=== PATIENT | female | born 1960 | race Two or more races ===

== ENCOUNTER 2016-09-13 15:30 | Emergency (ER) | payer MEDICAID, OTHER ==
[~2016-09-13] VITALS: Ht 160 cm; Wt 80.3 kg
[2016-09-13 17:44] VITALS: BP 162/87
== END 2016-09-13 18:13 | disposition home or self-care (01) ==
LOC: ER 15:43
DX: Z45.2 Encounter for adjustment and management of vascular access device (principal); Z85.9 Personal history of malignant neoplasm, unspecified

== ENCOUNTER 2020-06-10 18:20 | Inpatient (IN) | payer MEDICAID ==
[~2020-06-10] VITALS: Ht 160 cm; Wt 77.4 kg
[2020-06-10] MEDS ORDERED: SODIUM CHLORIDE 0.9% 1,000 ML IV ONE (19:30)
[2020-06-10] MEDS ORDERED: AZITHROMYCIN 500MG/ 250ML 250 ML IV ONE (19:30)
[2020-06-10] MEDS ORDERED: cefTRIAXone 1GM/50ML D5W 50 ML IV ONE (19:30)
[2020-06-10 19:42] LABS: Basophils # (auto) 0 10 ^3/uL (0-0.2); Basophils % (auto) 0.2 % (0.0-2.0); Eosinophils # (auto) 0.1 10 ^3/uL (0-0.8); Hematocrit 38.3 % (36.0-46.0); Lymphocytes # (auto) 1.2 10 ^3/uL (0.4-5.4); Lymphocytes % (auto) 15.1 % (10.0-50.0); Mean Corpuscular Volume 93.9 fL (80.0-100.0); Monocytes # (auto) 0.5 10 ^3/uL (0-1.3); Monocytes % (auto) 6.1 % (0.0-12.0); Neutrophils # (auto) 6.2 10 ^3/uL (1.6-8.6); Neutrophils % (auto) 77.6 % (37.0-80.0); Platelet Count (auto) 206 10^3/uL (140-450); Red Blood Cells 4.08 10^6/uL (4.0-5.20)
[2020-06-10 19:55] LABS: Albumin 2.9 g/dL (3.4-5.0); Calcium 8.1 mg/dL (8.5-10.1); Potassium 3.6 mmol/L (3.5-5.1)
[2020-06-10 19:59] LABS: BUN/Creatinine Ratio 11.4; Bilirubin, Total 0.5 mg/dL (0.2-1.0); Total Protein 7.8 g/dL (6.4-8.2)
[2020-06-10] MEDS ORDERED: DexAMETHasone INJECTION 10 MG in D5W 5% 50 ML IV ONE (21:15)
[2020-06-10] MEDS ORDERED: DexAMETHasone SOD PHOS 4 MG/1ML SDV INJ IV ONE (21:30)
[2020-06-11] MEDS ORDERED: HYDROcodone-ACET 5/325MG TAB PO PRN (05:45)
[2020-06-11] MEDS ORDERED: ONDANSETRON HCL 4 MG/2 ML VIAL IV PRN (05:45)
[2020-06-11] MEDS ORDERED: NITROGLYCERIN 0.4 MG SL TAB SL PRN (05:45)
[2020-06-11] MEDS ORDERED: MORPHINE SULF INJ 2 MG/ML SYRINGE 1ML IV PRN ×2 (05:45)
[2020-06-11] MEDS ORDERED: DOCUSATE SOD 100 MG CAP PO PRN (05:45)
[2020-06-11] MEDS ORDERED: ACETAMINOPHEN 325 MG TAB PO PRN (05:45)
[2020-06-11] MEDS ORDERED: DOXYCYCLINE 100MG/250ML 250 ML IV SCH (06:00)
[2020-06-11] MEDS: SODIUM CHLOR 0.9% PF (SALINE LOCK) 10ML VIAL/SYR IV SCH ×3 (06:00→22:27)
[2020-06-11] MEDS ORDERED: ALBUTEROL SULF HFA 90MCG INH 200DOSE IN SCH (06:00)
[2020-06-11 07:35] LABS: Basophils # (auto) 0 10 ^3/uL (0-0.2); Basophils % (auto) 0.1 % (0.0-2.0); Eosinophils # (auto) 0 10 ^3/uL (0-0.8); Hematocrit 38.4 % (36.0-46.0); Hemoglobin 12.9 g/dL (12.2-16.2); Lymphocytes # (auto) 0.8 10 ^3/uL (0.4-5.4); Lymphocytes % (auto) 15.7 % (10.0-50.0); Mean Corpuscular Hemoglobin 31.3 pg (28.0-32.0); Mean Corpuscular Hgb Conc. 33.6 g/dL (32.0-36.0); Mean Corpuscular Volume 93.1 fL (80.0-100.0); Monocytes # (auto) 0.2 10 ^3/uL (0-1.3); Monocytes % (auto) 4.4 % (0.0-12.0); Neutrophils # (auto) 3.9 10 ^3/uL (1.6-8.6); Neutrophils % (auto) 79.8 % (37.0-80.0); Nucleated Red Blood Cells % 0.1 %; Platelet Count (auto) 237 10^3/uL (140-450); Red Blood Cells 4.12 10^6/uL (4.0-5.20); Red Cell Distribution Width 12.9 % (11.8-14.3); White Blood Cell 4.9 10^3/uL (4.4-10.8)
[2020-06-11 07:47] LABS: Albumin 2.8 g/dL (3.4-5.0); BUN/Creatinine Ratio 10.9; Calcium 8.7 mg/dL (8.5-10.1)
[2020-06-11 07:51] LABS: Bilirubin, Total 0.4 mg/dL (0.2-1.0); Total Protein 7.5 g/dL (6.4-8.2)
[2020-06-11] MEDS: FAMOTIDINE (10MG/ML) 2ML VL IV SCH ×2 (09:46→22:27)
[2020-06-11] MEDS ORDERED: DexAMETHasone SOD PHOS 10MG/1ML VIAL INJ IV SCH (10:00)
[2020-06-11] MEDS: ZINC SULFATE 220mg CAP or TAB PO SCH (10:00)
[2020-06-11] MEDS ORDERED: ENOXAPARIN SOD 40 MG/0.4 ML SYRINGE SC SCH (10:00)
[2020-06-11] MEDS: MULTIPLE VITAMIN TAB PO SCH (10:00)
[2020-06-11] MEDS: ASCORBIC ACID 500 MG TAB PO SCH ×2 (10:00→22:27)
[2020-06-11] MEDS ORDERED: levoFLOXacin 500MG 100 ML IV ONE (11:00)
[2020-06-11] MEDS ORDERED: REMDESIVIR PER PHARMACY 0 ML IV SCH (11:00)
[2020-06-11] MEDS ORDERED: diphenhdrAMINE HCL 50 MG/1 ML VL IV PRN (11:00)
[2020-06-11] MEDS: cefTRIAXone 1GM/50ML D5W 50 ML IV SCH (20:00)
[2020-06-11] MEDS: ENOXAPARIN SOD 40 MG/0.4 ML SYRINGE SC SCH (22:27)
[2020-06-12 05:13] LABS: Basophils # (auto) 0 10 ^3/uL (0-0.2); Basophils % (auto) 0.1 % (0.0-2.0); Eosinophils # (auto) 0 10 ^3/uL (0-0.8); Eosinophils % (auto) 0.1 % (0.0-7.0); Hematocrit 37.1 % (36.0-46.0); Hemoglobin 12.8 g/dL (12.2-16.2); Lymphocytes % (auto) 12.9 % (10.0-50.0); Mean Corpuscular Hemoglobin 32.4 pg (28.0-32.0); Mean Corpuscular Hgb Conc. 34.6 g/dL (32.0-36.0); Mean Corpuscular Volume 93.6 fL (80.0-100.0); Monocytes # (auto) 0.6 10 ^3/uL (0-1.3); Monocytes % (auto) 7.5 % (0.0-12.0); Neutrophils % (auto) 79.4 % (37.0-80.0); Nucleated Red Blood Cells % 0.1 %; Platelet Count (auto) 275 10^3/uL (140-450); Red Blood Cells 3.96 10^6/uL (4.0-5.20); Red Cell Distribution Width 13.4 % (11.8-14.3); White Blood Cell 7.5 10^3/uL (4.4-10.8)
[2020-06-12 05:25] LABS: Albumin 2.7 g/dL (3.4-5.0); BUN/Creatinine Ratio 18.6; Potassium 4.1 mmol/L (3.5-5.1)
[2020-06-12 05:33] LABS: Bilirubin, Total 0.5 mg/dL (0.2-1.0); Total Protein 7.1 g/dL (6.4-8.2)
[2020-06-12] MEDS: SODIUM CHLOR 0.9% PF (SALINE LOCK) 10ML VIAL/SYR IV SCH ×3 (06:21→22:32)
[2020-06-12] MEDS ORDERED: LEVO25TA49 PO (09:58)
[2020-06-12] MEDS: FAMOTIDINE (10MG/ML) 2ML VL IV SCH ×2 (10:00→22:33)
[2020-06-12] MEDS: MULTIPLE VITAMIN TAB PO SCH (10:08)
[2020-06-12] MEDS: ZINC SULFATE 220mg CAP or TAB PO SCH (10:08)
[2020-06-12] MEDS: ASCORBIC ACID 500 MG TAB PO SCH ×2 (10:08→22:33)
[2020-06-12] MEDS: levoFLOXacin 500MG 100 ML IV SCH (10:08)
[2020-06-12] MEDS: ENOXAPARIN SOD 40 MG/0.4 ML SYRINGE SC SCH ×2 (10:08→22:00)
[2020-06-12] MEDS: LEVOTHYROXINE SODIUM 50 MCG TAB PO SCH (10:46)
[2020-06-12] MEDS: Glucerna Carbsteady SHAKE Vanilla 8oz PO SCH (18:39)
[2020-06-12] MEDS: cefTRIAXone 1GM/50ML D5W 50 ML IV SCH (21:34)
[2020-06-12 23:06] VITALS: BP 132/79
[2020-06-12 23:30] VITALS: BP 132/79
[2020-06-13] MEDS ORDERED: ASCO500T11 PO (01:39)
[2020-06-13] MEDS ORDERED: CHOL20009 PO (01:39)
[2020-06-13] MEDS ORDERED: ZINC220C8 PO (01:39)
[2020-06-13] MEDS ORDERED: OMEG1CAP59 PO (01:39)
[2020-06-13 03:41] VITALS: BP 115/74
[2020-06-13] MEDS: SODIUM CHLOR 0.9% PF (SALINE LOCK) 10ML VIAL/SYR IV SCH ×3 (05:32→21:53)
[2020-06-13] MEDS: LEVOTHYROXINE SODIUM 50 MCG TAB PO SCH (06:33)
[2020-06-13 07:56] VITALS: BP 133/86
[2020-06-13] MEDS: MULTIPLE VITAMIN TAB PO SCH (09:19)
[2020-06-13] MEDS: levoFLOXacin 500MG 100 ML IV SCH (09:19)
[2020-06-13] MEDS: ENOXAPARIN SOD 40 MG/0.4 ML SYRINGE SC SCH ×2 (09:20→21:54)
[2020-06-13] MEDS: FAMOTIDINE (10MG/ML) 2ML VL IV SCH ×2 (09:20→21:53)
[2020-06-13] MEDS: ASCORBIC ACID 500 MG TAB PO SCH ×2 (09:20→21:54)
[2020-06-13] MEDS: Glucerna Carbsteady SHAKE Vanilla 8oz PO SCH ×3 (09:20→17:31)
[2020-06-13] MEDS: ZINC SULFATE 220mg CAP or TAB PO SCH (09:22)
[2020-06-13] MEDS ORDERED: CHOLECALCIFEROL (VITD3) 2,000 UNIT CAP/TAB PO ONE (11:02)
[2020-06-13] MEDS ORDERED: DexAMETHasone SOD PHOS 10MG/1ML VIAL INJ IV ONE (11:02)
[2020-06-13] MEDS ORDERED: REMDESIVIR PER PHARMACY 0 ML IV SCH (11:15)
[2020-06-13 12:15] LABS: Hematocrit 38.1 % (36.0-46.0); Hemoglobin 12.8 g/dL (12.2-16.2); Mean Corpuscular Hemoglobin 31.8 pg (28.0-32.0); Mean Corpuscular Hgb Conc. 33.6 g/dL (32.0-36.0); Mean Corpuscular Volume 94.5 fL (80.0-100.0); Platelet Count (auto) 339 10^3/uL (140-450); Red Blood Cells 4.03 10^6/uL (4.0-5.20); Red Cell Distribution Width 13.4 % (11.8-14.3); White Blood Cell 8.7 10^3/uL (4.4-10.8)
[2020-06-13 12:17] LABS: Basophils % (manual) 0 (0.0-2.0); Blast Cells 0; Promyelocytes % 0; Reactive Lymphocytes 0
[2020-06-13 12:33] LABS: Potassium 3.8 mmol/L (3.5-5.1)
[2020-06-13 12:40] LABS: Band Neutrophils % (manual) 3; Eosinophils % (manual) 2 (0-7); Lymphocytes % (manual) 29 (10.0-50.0); Metamyelocytes % 2; Monocytes % (manual) 8 (0-12); Myelocytes % 1
[2020-06-13 12:54] LABS: Albumin 2.6 g/dL (3.4-5.0); BUN/Creatinine Ratio 24.6; Bilirubin, Total 0.5 mg/dL (0.2-1.0); Calcium 8.1 mg/dL (8.5-10.1); Total Protein 7.1 g/dL (6.4-8.2)
[2020-06-13 16:00] VITALS: BP 125/74
[2020-06-13] MEDS ORDERED: REMDESIVIR 200 MG in NS 210ml LOADING DOSE ADULT IV ONE (17:00)
[2020-06-13 17:30] VITALS: BP 130/71
[2020-06-13 17:45] VITALS: BP 105/60
[2020-06-13 18:30] VITALS: BP 103/60
[2020-06-13] MEDS: BUDESONIDE (INHALATION) 180 MCG IH IN SCH (20:37)
[2020-06-14] VITALS: BP 118/63
[2020-06-14] MEDS: SODIUM CHLOR 0.9% PF (SALINE LOCK) 10ML VIAL/SYR IV SCH ×3 (06:00→22:00)
[2020-06-14] MEDS: LEVOTHYROXINE SODIUM 50 MCG TAB PO SCH (06:44)
[2020-06-14] MEDS ORDERED: IVERMECTIN 3 MG TAB PO ONE (07:00)
[2020-06-14] MEDS: BUDESONIDE (INHALATION) 180 MCG IH IN SCH ×2 (07:00→19:32)
[2020-06-14 07:25] LABS: Albumin 2.5 g/dL (3.4-5.0); BUN/Creatinine Ratio 21.7; Calcium 8.4 mg/dL (8.5-10.1); Potassium 4.3 mmol/L (3.5-5.1)
[2020-06-14 07:34] LABS: Bilirubin, Total 0.4 mg/dL (0.2-1.0); CRP High Sensitivity 2.41 mg/dL (< 0.3); Total Protein 6.9 g/dL (6.4-8.2)
[2020-06-14 08:00] VITALS: BP 121/81
[2020-06-14] MEDS: Glucerna Carbsteady SHAKE Vanilla 8oz PO SCH ×3 (08:28→17:54)
[2020-06-14] MEDS: levoFLOXacin 500MG 100 ML IV SCH (09:09)
[2020-06-14] MEDS: FAMOTIDINE (10MG/ML) 2ML VL IV SCH ×2 (09:09→22:00)
[2020-06-14] MEDS: DexAMETHasone SOD PHOS 10MG/1ML VIAL INJ IV SCH (09:09)
[2020-06-14] MEDS: MULTIPLE VITAMIN TAB PO SCH (09:10)
[2020-06-14] MEDS: ZINC SULFATE 220mg CAP or TAB PO SCH (09:10)
[2020-06-14] MEDS: CHOLECALCIFEROL (VITD3) 2,000 UNIT CAP/TAB PO SCH (09:10)
[2020-06-14] MEDS: ENOXAPARIN SOD 40 MG/0.4 ML SYRINGE SC SCH ×2 (09:10→22:00)
[2020-06-14] MEDS: ASCORBIC ACID 500 MG TAB PO SCH ×2 (09:10→22:00)
[2020-06-14] MEDS ORDERED: ERGOCALCIFEROL 50,000 UNIT(1.25MG) CAP PO SCH (13:00)
[2020-06-14 14:30] VITALS: BP 117/71
[2020-06-14] MEDS: REMDESIVIR 100mg 100 MG in SODIUM CHL 0.9% 230 ML IV SCH (14:30)
[2020-06-14 14:45] VITALS: BP 104/57
[2020-06-14 15:41] VITALS: BP 109/72
[2020-06-14] MEDS: ALBUTEROL SULF HFA 90MCG INH 200DOSE IN PRN (19:32)
[2020-06-15] VITALS: BP 111/64
[2020-06-15] MEDS: SODIUM CHLOR 0.9% PF (SALINE LOCK) 10ML VIAL/SYR IV SCH ×2 (05:49→14:00)
[2020-06-15] MEDS: LEVOTHYROXINE SODIUM 50 MCG TAB PO SCH (06:40)
[2020-06-15 06:48] LABS: Albumin 2.9 g/dL (3.4-5.0); Calcium 8.7 mg/dL (8.5-10.1); Potassium 3.9 mmol/L (3.5-5.1)
[2020-06-15 06:52] LABS: BUN/Creatinine Ratio 22.7; Bilirubin, Total 0.5 mg/dL (0.2-1.0); Total Protein 7.4 g/dL (6.4-8.2)
[2020-06-15 08:00] VITALS: BP 109/69
[2020-06-15] MEDS: levoFLOXacin 500MG 100 ML IV SCH (09:31)
[2020-06-15] MEDS: DexAMETHasone SOD PHOS 10MG/1ML VIAL INJ IV SCH (09:32)
[2020-06-15] MEDS: FAMOTIDINE (10MG/ML) 2ML VL IV SCH (09:33)
[2020-06-15] MEDS: ZINC SULFATE 220mg CAP or TAB PO SCH (09:33)
[2020-06-15] MEDS: CHOLECALCIFEROL (VITD3) 2,000 UNIT CAP/TAB PO SCH (09:34)
[2020-06-15] MEDS: MULTIPLE VITAMIN TAB PO SCH (09:34)
[2020-06-15] MEDS: ASCORBIC ACID 500 MG TAB PO SCH (09:35)
[2020-06-15] MEDS: ENOXAPARIN SOD 40 MG/0.4 ML SYRINGE SC SCH (09:35)
[2020-06-15] MEDS: Glucerna Carbsteady SHAKE Vanilla 8oz PO SCH ×3 (09:35→18:00)
[2020-06-15] MEDS: BUDESONIDE (INHALATION) 180 MCG IH IN SCH (09:38)
[2020-06-15] MEDS: ALBUTEROL SULF HFA 90MCG INH 200DOSE IN PRN (09:38)
[2020-06-15] MEDS ORDERED: DEX4T PO (15:11)
[2020-06-15] MEDS ORDERED: BUDE2SUS3 IN (15:11)
[2020-06-15] MEDS ORDERED: ALBUAER3 IN (15:11)
[2020-06-15] MEDS ORDERED: ASPI-378 PO (15:11)
[2020-06-15] MEDS ORDERED: CHOL1CAP47 PO (15:11)
[2020-06-15] MEDS ORDERED: DOXY-286 PO (15:11)
[2020-06-15] MEDS ORDERED: FAMO20TA10 PO (15:11)
[2020-06-15] MEDS ORDERED: ASCO500T11 PO (15:11)
[2020-06-15] MEDS: REMDESIVIR 100mg 100 MG in SODIUM CHL 0.9% 230 ML IV SCH (15:48)
[2020-06-15 16:00] VITALS: BP 107/62
== END 2020-06-15 18:46 | disposition home or self-care (01) | DRG 137 ==
LOC: ER 18:20 → TELE 18:21 → TELE-EAST 06-12 23:07 → TELE-WESTW 06-13 02:13
PROVIDERS: ADMIT Nurse Practitioner Family; ATTEND Internal Medicine
PROC: XW033E5 Introduction of Remdesivir Anti-infective into Peripheral Vein, Percutaneous Approach, New Technology Group 5 (ICD-10-PCS; principal; 2020-06-13)
DX: U07.1 COVID-19 (principal); A41.89 Other specified sepsis; J12.82 Pneumonia due to coronavirus disease 2019; J96.01 Acute respiratory failure with hypoxia; R73.9 Hyperglycemia, unspecified; E66.9 Obesity, unspecified; R73.03 Prediabetes; F06.4 Anxiety disorder due to known physiological condition; E88.09 Other disorders of plasma-protein metabolism, not elsewhere classified; E55.9 Vitamin D deficiency, unspecified; E03.9 Hypothyroidism, unspecified; Z85.42 Personal history of malignant neoplasm of other parts of uterus; Z68.30 Body mass index [BMI] 30.0-30.9, adult; D89.839 Cytokine release syndrome, grade unspecified
CPT/HCPCS: 36415; 71045; 80053; 82306; 82728; 83036; 83605; 83615; 84443; 85007; 85025; 85027; 85379; 86141; 86850; 86900; 86901; 87040; 87070; 87205; 87426; 96365; 96368; 96375; G0378; J0696; J1100; J1956; J3490; J7060